=== PATIENT | female | born 1940 | race Caucasian/White ===

== ENCOUNTER 2024-06-27 17:49 | Inpatient (IN) ==
--- NOTE | 2024-06-27 18:10 | ED.PDOC ---
General <ALICJA LEE MD - Last Filed: 06/29/24 08:26> ED Provider: Dr. ALICJA LEE MD Chief Complaint: Shortness of Air Stated Complaint: Patient is a 83-year-old female that reported to the emergency department for shortness of breath. Patient stated that this started last night around midnight. Patient stated that she is just not felt well ever since her shortness of breath started. Patient did states that she takes Advair for COPD. Patient stated that she used her Advair inhaler today. Patient stated that she also takes blood pressure medication and furosemide for her congestive heart failure. Patient stated that she did not take those medications today because she did not feel well. Patient states that nothing makes her symptoms worse and nothing makes them better. Patient denies any chest pain, nausea, vomiting, diarrhea, dizziness, syncope, loss consciousness, headache, fever, or any other acute symptoms not currently mentioned in HPI. Patient denied being around any other sick contacts. Time Seen by Provider: 06/27/24 17:52 Mode of Arrival: Ambulance Information Source: Patient, Family and EMT Exam Limitations: No limitations Primary Care Provider: MANN DRAPER Nursing and Triage Documentation Reviewed and Agree: Yes Does Patient Take Opioids?: No Is Patient Opioid Naive?: No What is Opioid Naive?: *Opioid Naive implies the patient is not already taking opioids or not chronically receiving opioids on a daily basis. *PRN dosing is not "usually" associated with tolerance. *Patients are at higher risk of over-sedation and aspiration. Is Patient Opioid Tolerant?: No What is Opioid Tolerant?: *Opioid Tolerance implies less than the expected response to an opioid. *Acquired tolerance is defined by the patient taking 60mg of oral morphine daily (or equianalgesic dose of another opioid) for 1 week or more. *Often associated with chronic pain. *May take more than usual dose to achieve desired pain control. Review of Systems <ALICJA LEE MD - Last Filed: 06/29/24 08:26> Review Of Systems Constitutional: Reports Other (documented below) Respiratory: Reports Shortness of Breath All Other Systems: Other (documented below) PFSH <ALICJA LEE MD - Last Filed: 06/29/24 08:26> Medical History Thrombocytopenia D69.6 - Thrombocytopenia, unspecified (ICD-10) Anxiety F41.9 - Anxiety disorder, unspecified (ICD-10) Depression F32.A - Depression, unspecified (ICD-10) CHF (congestive heart failure) I50.9 - Heart failure, unspecified (ICD-10) Lung cancer Left lobectomy C34.90 - Malignant neoplasm of unspecified part of unspecified bronchus or lung (ICD-10) Dementia F03.90 - Unspecified dementia, unspecified severity, without behavioral disturbance, psychotic disturbance, mood disturbance, and anxiety (ICD-10) Family History Other No known health problems Social History Smoking and tobacco status: Never smoker Alcohol intake: never Surgical History History of total knee replacement (TKR) Z96.659 - Presence of unspecified artificial knee joint (ICD-10) H/O: section Z98.891 - History of uterine scar from previous surgery (ICD-10) Female Reproductive History Menstrual Hx Hysterectomy: Yes Physical Exam <ALICJA LEE MD - Last Filed: 06/29/24 08:26> Physical Exam Appearance: Reports Well-appearing and Well-nourished Ill-appearing: None (documented below if examined) Pain Distress: None (documented below if examined) Eyes: Reports YAHIR, EOMI and Conjunctiva clear ENT: Reports Ears normal, Nose normal and Oropharynx normal Neck: Supple Respiratory: Reports Airway patent, Breath sounds clear, Breath sounds equal and Respirations nonlabored Cardiovascular: Reports RRR, Pulses normal, No rub, No murmur, Irregular rhythm and Other (documented below if examined) GI/: Reports Soft, Nontender, No masses and Bowel sounds normal Musculoskeletal: Reports Normal strength, ROM intact and Edema (Patient has bilateral lower extremity +2 pitting edema.) Skin: Reports Warm, Dry, Normal color and Other (documented below if examined) Neurological: Reports Sensation intact, Motor intact and Other (documented below if examined) Psychiatric: Reports Affect appropriate, Mood appropriate and Other (documented below if examined) Interpretation <ALICJA LEE MD - Last Filed: 06/29/24 08:26> EKG Interpretation EKG Interpretation By: ED Physician Time of EKG #1: 18:25 Rate: Normal Rhythm: Sinus Ectopy: None [place]: [place] ST Segment: Normal Course <ALICJA LEE MD - Last Filed: 06/29/24 08:26> Course 06/29/24 05:06 06/29/24 05:06 Orders, Labs, Meds: Lab Review 06/27/24 06/27/24 06/27/24 18:19 18:22 19:10 WBC 6.35 RBC 3.38 L Hgb 10.7 L Hct 34.3 L MCV 101.5 H MCH 31.7 H MCHC 31.2 L RDW Coeff of Jono 15.3 H Plt Count 106 L Immature Gran % (Auto) 0.5 Neut % (Auto) 68.5 Lymph % (Auto) 19.7 [place] % (Auto) 6.3 Eos % (Auto) 4.7 Baso % (Auto) 0.3 Neut # (Auto) 4.4 Lymph # (Auto) 1.3 [place] # (Auto) 0.4 Eos # (Auto) 0.3 Baso # (Auto) 0.0 Immature Gran # (Auto) 0.0 Sodium 141.2 Potassium 4.79 Chloride 115.3 H Carbon Dioxide 18.0 L Anion Gap 12.69 BUN 41.3 H Creatinine 2.69 H Estimated GFR (MDRD) 17.00 BUN/Creatinine Ratio 15.35 Glucose 82.8 Lactic Acid 0.74 Calcium 9.47 Total Bilirubin 0.52 AST 27.5 ALT 16.1 Alkaline Phosphatase 118.2 Troponin I < 0.012 NT-Pro-B Natriuret Pep 1810 H Total Protein 6.63 Albumin 4.09 Globulin 2.54 Albumin/Globulin Ratio 1.61 Urine Color Yellow Urine Clarity Clear Urine pH 6.0 Ur Specific [place] 1.020 Urine Protein 2+ H Urine Glucose (UA) Negative Urine Ketones Negative Urine Blood Trace-intact H Urine Nitrite Negative Urine Bilirubin Negative Urine Urobilinogen 0.2 Ur Leukocyte Esterase Negative Urine Microscopic RBC 0-2 Urine Microscopic WBC 0-2 Ur Squamous Epith Cells 0-2 Urine Bacteria Trace Urine Mucus Trace Influ A Molecular Assay Negative by naat Influ B Molecular Assay Negative by naat SARS CoV-2 RNA Rapid LILIA Positive H Orders Category Date Time Status ADMIT OBSERVATION [PLACE PATIENT OBSERVATION] .TO ADMISSION 06/27/24 19:51 Active MEDSURG (MONITORED BED) EKG-(ED ONLY) Stat CARDIO 06/27/24 18:01 Completed NEBULIZER TREATMENT Routine CARDIO 06/27/24 19:59 Active NEBULIZER TREATMENT Stat CARDIO 06/27/24 18:02 Completed ACTIVITY .Early Mobilization for VTE Prevention CARE 06/27/24 19:51 Active INTAKE & OUTPUT Q8HR CARE 06/27/24 19:51 Active TELEMETRY MONITORING TELE CARE 06/27/24 19:51 Completed VITAL SIGNS Q4HR CARE 06/27/24 19:51 Active WEIGH PATIENT 0600 CARE 06/28/24 06:00 Active REGULAR DIET DIETARY 06/28/24 Breakfast Ordered ED APPLY O2 .ONCE EMERGENCY 06/27/24 18:01 Active ED SALES MGR APPLIED .ONCE EMERGENCY 06/27/24 18:01 Active CBC W/ AUTO DIFF DAILY@0600 LAB 06/28/24 05:13 Completed CBC W/ AUTO DIFF DAILY@0600 LAB 06/29/24 05:06 Completed CBC W/ AUTO DIFF Stat LAB 06/27/24 18:19 Completed COMPREHENSIVE METABOLIC PANEL DAILY@0600 LAB 06/28/24 05:13 Completed COMPREHENSIVE METABOLIC PANEL DAILY@0600 LAB 06/29/24 05:06 Completed COMPREHENSIVE METABOLIC PANEL Stat LAB 06/27/24 18:19 Completed FLU A/B MOLECULAR Stat LAB 06/27/24 18:22 Completed LACTIC ACID Stat LAB 06/27/24 18:19 Completed NT-PROBNP(ED) Stat LAB 06/27/24 18:19 Completed SARS COV-2 RNA RAPID LILIA Stat LAB 06/27/24 18:22 Completed TROPONIN I Stat LAB 06/27/24 18:19 Completed URINALYSIS C & S IF INDICATED Stat LAB 06/27/24 19:10 Completed Acetaminophen [Tylenol] Meds 06/27/24 19:51 Active 650 mg PO Q4H PRN Albuterol Sulfate 0.083% Neb [Albuterol 0.083% Neb] Meds 06/27/24 19:59 Active 2.5 mg NEB RTQ4H PRN Enoxaparin Sodium [Lovenox] Meds 06/27/24 21:00 Discontinued 30 mg SUBCUT Q24H Furosemide [Lasix] Meds 06/28/24 06:00 Discontinued 40 mg IVP BIDAC2 Furosemide [Lasix] Meds 06/27/24 18:01 Discontinued 40 mg IVP ONCE STA Ipratropium/Albuterol Neb [Duoneb] Meds 06/27/24 18:01 Discontinued 3 ml NEB ONCE STA Ipratropium/Albuterol Neb [Duoneb] Meds 06/27/24 22:00 Discontinued 3 ml NEB RTQ4H Methylprednisolone Sod Succ/Pf [Solu-Medrol 125 mg] Meds 06/27/24 18:01 Discontinued 125 mg IVP ONCE ONE CHEST, 1V AP ONLY Stat RADS 06/27/24 18:01 Completed Medications Generic Name Dose Route Start Last Admin Trade Name Freq PRN Reason Stop Dose Admin Acetaminophen 650 mg 06/27/24 19:51 Acetaminophen 325 Mg Tablet PO Q4H PRN Mild Pain Albuterol Sulfate 2.5 mg 06/27/24 19:59 Albuterol Sulfate 0.083% Vial.Neb NEB RTQ4H PRN Wheezing Albuterol/Ipratropium 3 ml 06/28/24 14:11 Ipratropium/Albuterol Vial.Neb NEB RTQ4H PRN wheezing Allopurinol 100 mg 06/28/24 09:00 06/28/24 11:37 Allopurinol 100 Mg Tablet PO 100 mg EVERY OTHER DAY TJ Administration Budesonide/Formoterol Fumarate 2 puff 06/28/24 09:00 06/28/24 20:36 Budesonide/Formoterol Fumarate 80/4.5 Mcg Hfa.Aer.Ad IH 2 puff BID TJ Administration Escitalopram Oxalate 20 mg 06/28/24 09:00 06/28/24 09:33 Escitalopram Oxalate 10 Mg Tablet PO 20 mg DAILY TJ Administration Remdesivir 100 mg/ Sodium 100 mls @ 200 mls/hr 06/29/24 09:00 Chloride IV 07/02/24 09:29 DAILY TJ Sodium Bicarbonate 650 mg 06/28/24 09:00 06/28/24 20:36 Sodium Bicarbonate 650 Mg Tablet PO 650 mg BID TJ Administration Sodium Chloride 1 syr 06/28/24 05:00 06/29/24 05:56 0.9% Sodium Chloride 10 Ml Disp.Syrin IVF 1 syr Q8HR TJ Administration Discontinued Medications Generic Name Dose Route Start Last Admin Trade Name Freq PRN Reason Stop Dose Admin Albuterol/Ipratropium 3 ml 06/27/24 18:01 06/27/24 18:18 Ipratropium/Albuterol Vial.Neb NEB 06/27/24 18:02 3 ml ONCE STA Administration Albuterol/Ipratropium 3 ml 06/27/24 22:00 06/28/24 14:04 Ipratropium/Albuterol Vial.Neb NEB Not Given RTQ4H TJ Enoxaparin Sodium 30 mg 06/27/24 21:00 06/27/24 22:13 Enoxaparin Sodium 30 Mg/0.3 Ml Syr SUBCUT Not Given Q24H TJ Furosemide 40 mg 06/27/24 18:01 06/27/24 18:26 Furosemide Inj 40 Mg/4 Ml Vial IVP 06/27/24 18:02 40 mg ONCE STA Administration Furosemide 40 mg 06/28/24 06:00 06/28/24 05:25 Furosemide Inj 40 Mg/4 Ml Vial IVP 40 mg BIDAC2 TJ Administration Remdesivir 200 mg/ Sodium 250 mls @ 250 mls/hr 06/28/24 11:03 06/28/24 11:37 Chloride IV 06/28/24 12:02 250 mls/hr ONCE ONE Administration Methylprednisolone Sodium Succinate 125 mg 06/27/24 18:01 06/27/24 18:26 Methylprednisolone Sod Succ/Pf 125 Mg/2 Ml Vial IVP 06/27/24 18:02 125 mg ONCE ONE Administration Vital Signs: Temp Pulse Resp BP Pulse Ox 06/27/24 17:50 98.1 F 68 18 188/86 H 100 <NELLIE WRIGHT MD - Last Filed: 06/27/24 22:24> Course Orders, Labs, Meds: Lab Review 06/27/24 06/27/24 06/27/24 18:19 18:22 19:10 WBC 6.35 RBC 3.38 L Hgb 10.7 L Hct 34.3 L MCV 101.5 H MCH 31.7 H MCHC 31.2 L RDW Coeff of Jono 15.3 H Plt Count 106 L Immature Gran % (Auto) 0.5 Neut % (Auto) 68.5 Lymph % (Auto) 19.7 [place] % (Auto) 6.3 Eos % (Auto) 4.7 Baso % (Auto) 0.3 Neut # (Auto) 4.4 Lymph # (Auto) 1.3 [place] # (Auto) 0.4 Eos # (Auto) 0.3 Baso # (Auto) 0.0 Immature Gran # (Auto) 0.0 Sodium 141.2 Potassium 4.79 Chloride 115.3 H Carbon Dioxide 18.0 L Anion Gap 12.69 BUN 41.3 H Creatinine 2.69 H Estimated GFR (MDRD) 17.00 BUN/Creatinine Ratio 15.35 Glucose 82.8 Lactic Acid 0.74 Calcium 9.47 Total Bilirubin 0.52 AST 27.5 ALT 16.1 Alkaline Phosphatase 118.2 Troponin I < 0.012 NT-Pro-B Natriuret Pep 1810 H Total Protein 6.63 Albumin 4.09 Globulin 2.54 Albumin/Globulin Ratio 1.61 Urine Color Yellow Urine Clarity Clear Urine pH 6.0 Ur Specific [place] 1.020 Urine Protein 2+ H Urine Glucose (UA) Negative Urine Ketones Negative Urine Blood Trace-intact H Urine Nitrite Negative Urine Bilirubin Negative Urine Urobilinogen 0.2 Ur Leukocyte Esterase Negative Urine Microscopic RBC 0-2 Urine Microscopic WBC 0-2 Ur Squamous Epith Cells 0-2 Urine Bacteria Trace Urine Mucus Trace Influ A Molecular Assay Negative by naat Influ B Molecular Assay Negative by naat SARS CoV-2 RNA Rapid LILIA Positive H Orders Category Date Time Status ADMIT OBSERVATION [PLACE PATIENT OBSERVATION] .TO ADMISSION 06/27/24 19:51 Active MEDSURG (MONITORED BED) EKG-(ED ONLY) Stat CARDIO 06/27/24 18:01 Completed NEBULIZER TREATMENT Routine CARDIO 06/27/24 19:59 Active NEBULIZER TREATMENT Stat CARDIO 06/27/24 18:02 Completed ACTIVITY .Early Mobilization for VTE Prevention CARE 06/27/24 19:51 Active INTAKE & OUTPUT Q8HR CARE 06/27/24 19:51 Active TELEMETRY MONITORING TELE CARE 06/27/24 19:51 Completed VITAL SIGNS Q4HR CARE 06/27/24 19:51 Active WEIGH PATIENT 0600 CARE 06/28/24 06:00 Active REGULAR DIET DIETARY 06/28/24 Breakfast Ordered ED APPLY O2 .ONCE EMERGENCY 06/27/24 18:01 Active ED SALES MGR APPLIED .ONCE EMERGENCY 06/27/24 18:01 Active CBC W/ AUTO DIFF DAILY@0600 LAB 06/28/24 05:13 Completed CBC W/ AUTO DIFF DAILY@0600 LAB 06/29/24 05:06 Completed CBC W/ AUTO DIFF Stat LAB 06/27/24 18:19 Completed COMPREHENSIVE METABOLIC PANEL DAILY@0600 LAB 06/28/24 05:13 Completed COMPREHENSIVE METABOLIC PANEL DAILY@0600 LAB 06/29/24 05:06 Completed COMPREHENSIVE METABOLIC PANEL Stat LAB 06/27/24 18:19 Completed FLU A/B MOLECULAR Stat LAB 06/27/24 18:22 Completed LACTIC ACID Stat LAB 06/27/24 18:19 Completed NT-PROBNP(ED) Stat LAB 06/27/24 18:19 Completed SARS COV-2 RNA RAPID LILIA Stat LAB 06/27/24 18:22 Completed TROPONIN I Stat LAB 06/27/24 18:19 Completed URINALYSIS C & S IF INDICATED Stat LAB 06/27/24 19:10 Completed Acetaminophen [Tylenol] Meds 06/27/24 19:51 Active 650 mg PO Q4H PRN Albuterol Sulfate 0.083% Neb [Albuterol 0.083% Neb] Meds 06/27/24 19:59 Active 2.5 mg NEB RTQ4H PRN Enoxaparin Sodium [Lovenox] Meds 06/27/24 21:00 Discontinued 30 mg SUBCUT Q24H Furosemide [Lasix] Meds 06/28/24 06:00 Discontinued 40 mg IVP BIDAC2 Furosemide [Lasix] Meds 06/27/24 18:01 Discontinued 40 mg IVP ONCE STA Ipratropium/Albuterol Neb [Duoneb] Meds 06/27/24 18:01 Discontinued 3 ml NEB ONCE STA Ipratropium/Albuterol Neb [Duoneb] Meds 06/27/24 22:00 Discontinued 3 ml NEB RTQ4H Methylprednisolone Sod Succ/Pf [Solu-Medrol 125 mg] Meds 06/27/24 18:01 Discontinued 125 mg IVP ONCE ONE CHEST, 1V AP ONLY Stat RADS 06/27/24 18:01 Completed Medications Generic Name Dose Route Start Last Admin Trade Name Freq PRN Reason Stop Dose Admin Acetaminophen 650 mg 06/27/24 19:51 Acetaminophen 325 Mg Tablet PO Q4H PRN Mild Pain Albuterol Sulfate 2.5 mg 06/27/24 19:59 Albuterol Sulfate 0.083% Vial.Neb NEB RTQ4H PRN Wheezing Albuterol/Ipratropium 3 ml 06/28/24 14:11 Ipratropium/Albuterol Vial.Neb NEB RTQ4H PRN wheezing Allopurinol 100 mg 06/28/24 09:00 06/28/24 11:37 Allopurinol 100 Mg Tablet PO 100 mg EVERY OTHER DAY TJ Administration Budesonide/Formoterol Fumarate 2 puff 06/28/24 09:00 06/28/24 20:36 Budesonide/Formoterol Fumarate 80/4.5 Mcg Hfa.Aer.Ad IH 2 puff BID TJ Administration Escitalopram Oxalate 20 mg 06/28/24 09:00 06/28/24 09:33 Escitalopram Oxalate 10 Mg Tablet PO 20 mg DAILY TJ Administration Remdesivir 100 mg/ Sodium 100 mls @ 200 mls/hr 06/29/24 09:00 Chloride IV 07/02/24 09:29 DAILY TJ Sodium Bicarbonate 650 mg 06/28/24 09:00 06/28/24 20:36 Sodium Bicarbonate 650 Mg Tablet PO 650 mg BID TJ Administration Sodium Chloride 1 syr 06/28/24 05:00 06/29/24 05:56 0.9% Sodium Chloride 10 Ml Disp.Syrin IVF 1 syr Q8HR TJ Administration Discontinued Medications Generic Name Dose Route Start Last Admin Trade Name Freq PRN Reason Stop Dose Admin Albuterol/Ipratropium 3 ml 06/27/24 18:01 06/27/24 18:18 Ipratropium/Albuterol Vial.Neb NEB 06/27/24 18:02 3 ml ONCE STA Administration Albuterol/Ipratropium 3 ml 06/27/24 22:00 06/28/24 14:04 Ipratropium/Albuterol Vial.Neb NEB Not Given RTQ4H TJ Enoxaparin Sodium 30 mg 06/27/24 21:00 06/27/24 22:13 Enoxaparin Sodium 30 Mg/0.3 Ml Syr SUBCUT Not Given Q24H TJ Furosemide 40 mg 06/27/24 18:01 06/27/24 18:26 Furosemide Inj 40 Mg/4 Ml Vial IVP 06/27/24 18:02 40 mg ONCE STA Administration Furosemide 40 mg 06/28/24 06:00 06/28/24 05:25 Furosemide Inj 40 Mg/4 Ml Vial IVP 40 mg BIDAC2 TJ Administration Remdesivir 200 mg/ Sodium 250 mls @ 250 mls/hr 06/28/24 11:03 06/28/24 11:37 Chloride IV 06/28/24 12:02 250 mls/hr ONCE ONE Administration Methylprednisolone Sodium Succinate 125 mg 06/27/24 18:01 06/27/24 18:26 Methylprednisolone Sod Succ/Pf 125 Mg/2 Ml Vial IVP 06/27/24 18:02 125 mg ONCE ONE Administration [address] [address] Diagnostic Imaging Diagnostic Imaging Report : [id number] Signed Patient: ERLIN WILLARD Acct:[id number] Medical Record: [id number] : 1940 Loc: ED Room/Bed: Age/Sex: 83 / F ADM Status: REG ER Date of Service: 06/27/24 Ordering Physician: ALICJA LEE MD Procedure(s): CHEST, 1V AP ONLY Report Number(s): [id number] Accession Number(s): [id number] cc: ALICJA LEE MD; MANN DRAPER , DNP, PARENT COACH EXAM: SINGLE VIEW CHEST XRAY. Date: 06/27/2024 Comparison: 11/28/2023 History: Shortness of breath with history of left lung cancer and partial left lobectomy. Findings: No acute osseous abnormality. There is stable scarring along the left lateral chest wall. The lungs are hyperinflated. The cardiac silhouette is enlarged. The pulmonary vasculatures normal. Impression: No acute findings and no significant change from 08/28/2024. Emphysematous changes with stable scarring along the left lateral chest wall. Cardiomegaly. Dictated By: ANGIE MINOR Signed By: ANGIE MINOR Dictated Date/Time: 06/27/241853 Transcribed Date/Time: 06/27/241853 Signed Date/Time: 06/27/24 1900 Vital Signs: Temp Pulse Resp BP Pulse Ox 06/27/24 17:50 98.1 F 68 18 188/86 H 100 19:00 - Assumed transfer of care from Dr. Lee after receiving report. Assessed pt at bedside after receiving Duoneb, Solumedrol 125, Lasix 40. Pt is hemodynamically stable but diminished breath sounds L>R lung baker. Updated pt with lab results with increased Cr, BNP. Pt agreeable to obs admission with strict I&Os for SPEEDY, COPD/CHF exac in the setting of early C19+ infection. 19:30 - Spoke with on-call hospitalist (Kenny James NP) regarding pt status and current workup and management. Agreed to accept pt for obs admission and likely dc home with appropriate oral antiviral therapy. Discharge Plan Discharge Patient Disposition: PLACED OBSERVATION Discharge Problem: COVID, SPEEDY (acute kidney injury) Dyspnea Qualifiers: Dyspnea type: unspecified Qualified Code(s): R06.00 - Dyspnea, unspecified Did you review [place] [employer] for ALL controlled substances?: Not Applicable ED Provider: NELLIE WRIGHT Condition: Stable <ALICJA LEE MD - Last Filed: 06/29/24 08:26> Physician Progress Note: Patient is a 83-year-old female that reported to the emergency department for shortness of breath. Patient stated that this started last night around midnight. Patient stated that she is just not felt well ever since her shortness of breath started. Patient did states that she takes Advair for COPD. Patient stated that she used her Advair inhaler today. Patient stated that she also takes blood pressure medication and furosemide for her congestive heart failure. Patient stated that she did not take those medications today because she did not feel well. Patient states that nothing makes her symptoms worse and nothing makes them better. Patient denies any chest pain, nausea, vomiting, diarrhea, dizziness, syncope, loss consciousness, headache, fever, or any other acute symptoms not currently mentioned in HPI. Patient denied being around any other sick contacts. -Will order baseline labs, EKG, troponin, IV Lasix 40 mg, IV methylprednisolone 125 mg, and a DuoNeb treatment. -EKG shows normal sinus rhythm with a rate of 65 bpm. No acute diagnostic ST elevations noted. -CBC shows an anemia more than likely of chronic disease. Lactic acid normal. Patient is positive for COVID. Patient's vital signs are stable with slightly elevated blood pressure of 177/92 at bedside. -1900: Endorsed patient care and current clinical presentation and all labs to the oncoming ER doctor Dr. Wright. Pt stable at checkout. -Dr. Wright eventually admitted the patient for observation at [facility].
[2024-06-27] MEDS: DUONEB NEB STA (18:18)
[2024-06-27 18:21] LABS: BASOPHILS % (AUTO) 0.3 % (0.0-3.0); EOSINOPHILS # (AUTO) 0.3 K/ul (0.0-0.7); EOSINOPHILS % (AUTO) 4.7 % (0.0-7.0); HEMATOCRIT 34.3 % (37.0-47.0); HEMOGLOBIN 10.7 g/dl (12.0-16.0); IMMATURE GRANULOCYTE % (AUTO) 0.5 % (0.0-5.0); LYMPHOCYTES # (AUTO) 1.3 K/uL (0.60-3.4); LYMPHOCYTES % (AUTO) 19.7 (10.0-50.0); MEAN CORPUSCULAR HEMOGLOBIN 31.7 pg (27.0-31.0); MEAN CORPUSCULAR HGB CONC 31.2 (31.8-35.4); MEAN CORPUSCULAR VOLUME 101.5 fl (81.0-99.0); MONOCYTES # (AUTO) 0.4 K/uL (0.4-2.0); MONOCYTES % (AUTO) 6.3 (0-10); NEUTROPHILS # (AUTO) 4.4 K/ul (2.0-6.9); NEUTROPHILS % (AUTO) 68.5 % (42.2-75.2); PLATELET COUNT 106 10^3/uL (140-440); RDW COEFFICIENT OF VARIATION 15.3 % (11.6-14.8); RED BLOOD COUNT 3.38 10^6/ul (4.20-5.40); WHITE BLOOD COUNT 6.35 K/ul (4.6-10.2)
[2024-06-27] MEDS: LASIX IVP STA (18:26)
[2024-06-27] MEDS: SOLU-MEDROL 125 MG IVP ONE (18:26)
[2024-06-27 18:33] LABS: ALANINE AMINOTRANSFERASE 16.1 U/L (0-35); ALBUMIN 4.09 g/dL (3.5-5.0); ALKALINE PHOSPHATASE 118.2 U/L (53-141); ASPARTATE AMINO TRANSFERASE 27.5 U/L (14-36); BILIRUBIN,TOTAL 0.52 mg/dL (0.2-1.3); BLOOD UREA NITROGEN 41.3 mg/dL (7-17); CALCIUM 9.47 mg/dL (8.4-10.2); CHLORIDE 115.3 mmol/L (98-107); CREATININE 2.69 mg/dL (0.60-1.30); GLUCOSE 82.8 mg/dL (74-106); POTASSIUM 4.79 mmol/L (3.5-5.1); SODIUM 141.2 mmol/L (134.5-145); TOTAL PROTEIN 6.63 g/dL (6.3-8.2)
[2024-06-27 18:43] LABS: MOLECULAR FLU A NEGATIVE BY NAAT (NEGATIVE); MOLECULAR FLU B NEGATIVE BY NAAT (NEGATIVE)
[2024-06-27 18:44] LABS: SARS COV-2 RNA RAPID NAAT POSITIVE (NEGATIVE)
[2024-06-27 18:49] LABS: TROPONIN I < 0.012 ng/ml (0.0000-0.120)
--- NOTE | 2024-06-27 19:00 | DI ---
EXAM: SINGLE VIEW CHEST XRAY. Date: 06/27/2024 Comparison: 11/28/2023 History: Shortness of breath with history of left lung cancer and partial left lobectomy. Findings: No acute osseous abnormality. There is stable scarring along the left lateral chest wall. The lungs are hyperinflated. The cardiac silhouette is enlarged. The pulmonary vasculatures normal . Impression: No acute findings and no significant change from 08/28/2024. Emphysematous changes with stable scarring along the left lateral chest wall. Cardiomegaly.
[2024-06-27] MEDS ORDERED: TYLENOL PO PRN (19:51)
[2024-06-27] MEDS ORDERED: ALBUTEROL 0.083% NEB NEB PRN (19:59)
[2024-06-27 21:22] LABS: BILIRUBIN,URINE Negative (NEGATIVE); CLARITY,URINE Clear (CLEAR); COLOR,URINE Yellow (YELLOW); GLUCOSE, URINE (UA) Negative (NEGATIVE); KETONES,URINE Negative (NEGATIVE); LEUKOCYTE ESTERASE ,URINE Negative (NEGATIVE); NITRITE,URINE Negative (NEGATIVE); PROTEIN,URINE 2+ (NEGATIVE); URINE, BLOOD Trace-intact (NEGATIVE); UROBILINOGEN,URINE 0.2 (0.2)
[2024-06-27 21:29] LABS: BACTERIA,URINE TRACE (NOT PRESENT); MUCUS,URINE TRACE (NOT PRESENT); SQUAMOUS EPITHELIAL CELL,UR 0-2 (0-5); URINE RBC, MICROSCOPIC 0-2 (0-2); URINE WBC, MICROSCOPIC 0-2 (0-2)
[2024-06-27] MEDS: DUONEB NEB SCH (21:40)
[2024-06-27] MEDS: LOVENOX SUBCUT SCH (22:13)
[2024-06-27 22:31] VITALS: BMI 30.6
[2024-06-28 05:18] LABS: HEMOGLOBIN 11.2 g/dl (12.0-16.0); MEAN CORPUSCULAR HEMOGLOBIN 31.8 pg (27.0-31.0); MEAN CORPUSCULAR HGB CONC 31.1 (31.8-35.4); MEAN CORPUSCULAR VOLUME 102.3 fl (81.0-99.0); PLATELET COUNT 101 10^3/uL (140-440); RED BLOOD COUNT 3.52 10^6/ul (4.20-5.40); WHITE BLOOD COUNT 5.67 K/ul (4.6-10.2)
[2024-06-28] MEDS: LASIX IVP SCH (05:25)
[2024-06-28 05:33] LABS: ALANINE AMINOTRANSFERASE 17.8 U/L (0-35); ALBUMIN 4.09 g/dL (3.5-5.0); ALKALINE PHOSPHATASE 115.7 U/L (53-141); ASPARTATE AMINO TRANSFERASE 20.7 U/L (14-36); BILIRUBIN,TOTAL 0.69 mg/dL (0.2-1.3); BLOOD UREA NITROGEN 44.5 mg/dL (7-17); CALCIUM 9.9 mg/dL (8.4-10.2); CARBON DIOXIDE 14.8 mmol/L (22-30.0); CHLORIDE 114.7 mmol/L (98-107); CREATININE 2.59 mg/dL (0.60-1.30); GLUCOSE 142.8 mg/dL (74-106); POTASSIUM 5.07 mmol/L (3.5-5.1); SODIUM 140.6 mmol/L (134.5-145); TOTAL PROTEIN 6.63 g/dL (6.3-8.2)
[2024-06-28 05:47] LABS: ANISOCYTOSIS NOT PRESENT (NOT PRESENT)
[2024-06-28] MEDS ORDERED: DECADRON IVP SCH (09:00)
[2024-06-28] MEDS: SODIUM BICARBONATE PO SCH (09:33)
[2024-06-28] MEDS: LEXAPRO PO SCH (09:33)
[2024-06-28] MEDS: SYMBICORT 80-4.5 MCG INHALER IH SCH (09:34)
[2024-06-28 10:42] LABS: PROTHROMBIN TIME 9.9 SEC (9.3-11.0)
--- NOTE | 2024-06-28 11:12 | PCM ---
Date of Service Date Seen by Provider: 06/28/24 Time Seen by Provider: 08:50 Admit Day/Time Admission Date: 06/27/24 Admission Time: 19:51 Reason for Admission Chief Complaint: SPEEDY, COVID + Hospital Provider Hospital Provider: JESSEE CASPER PA-C, [facility] Primary Care Physician Primary Care Physician: MANN DRAPER History of Present Illness History of Present Illness: Patient is an 83 year old female with pmhx of right kidney cancer s/p nephrectomy, left lower lobe lung lobectomy (potentially due to cancerous area), COPD, depression, gout, CHF, hypertension, CKD who presents to ER with worsening shortness of breath over last day or two. She states she has a cough but often has a cough. She feels weak overall. CXR negative. Covid was positive. Pt felt to be fluid overloaded and given lasix. BNP elevated at 1800. Cr elevated as well, unsure of baseline. Patient admitted to med surg. Records obtained from [facility] showing on CR was 2.3, BUN 47, bicarb 22, BNP 1137. Echo within past year was overall normal with some mild aortic stenosis. EF normal. When discussing lovenox prophylaxis patient states she doesn't think she can have it because of a brain aneurysm but she's unsure of details. Unable to find record of this. Case Discussed With Case Discussed With: Patient's case was discussed with the ER Physicians, Dr. Nath. [facility] Medical History Thrombocytopenia D69.6 - Thrombocytopenia, unspecified (ICD-10) Anxiety F41.9 - Anxiety disorder, unspecified (ICD-10) Depression F32.A - Depression, unspecified (ICD-10) CHF (congestive heart failure) I50.9 - Heart failure, unspecified (ICD-10) Lung cancer Left lobectomy C34.90 - Malignant neoplasm of unspecified part of unspecified bronchus or lung (ICD-10) Dementia F03.90 - Unspecified dementia, unspecified severity, without behavioral disturbance, psychotic disturbance, mood disturbance, and anxiety (ICD-10) Surgical History History of total knee replacement (TKR) Z96.659 - Presence of unspecified artificial knee joint (ICD-10) H/O: section Z98.891 - History of uterine scar from previous surgery (ICD-10) Family History Other No known health problems Social History Smoking and tobacco status: Never smoker Alcohol intake: never Allergies Allergies Allergy/AdvReac Type Severity Reaction Status Date / Time gabapentin AdvReac Verified 06/27/24 20:13 metoprolol AdvReac Verified 06/27/24 20:13 NSAIDS (Non-Steroidal AdvReac Verified 06/27/24 20:13 Anti-Inflamma Penicillins AdvReac Verified 06/27/24 20:13 pollen extracts AdvReac Verified 06/27/24 20:13 tetrabenazine AdvReac Verified 06/27/24 20:13 "I can't remember all of AdvReac Uncoded 01/16/24 09:39 them." Current Medications Home Medications allopurinol 100 mg tablet 100 mg PO EVERY OTHER DAY 11/28/23 [History Confirmed 06/27/24 Last Taken Unknown] cholecalciferol (vitamin D3) 25 mcg (1,000 unit) capsule (Vitamin D3) 25 mcg PO DAILY 11/28/23 [History Confirmed 06/27/24 Last Taken Unknown] fluticasone 100 mcg-salmeterol 50 mcg/dose blistr powdr for inhalation (Advair Diskus) 1 inh inhalation BID 11/28/23 [History Confirmed 06/27/24 Last Taken Unknown] losartan 100 mg tablet (Cozaar) 100 mg PO DAILY 11/28/23 [History Confirmed 06/27/24 Last Taken Unknown] mecobalamin (vitamin B12) 1,000 mcg disintegrating tablet,sublingual 1,000 mcg sublingual DAILY 11/28/23 [History Confirmed 06/27/24 Last Taken Unknown] albuterol sulfate 90 mcg/actuation aerosol inhaler (Proventil HFA) 1 inh inhalation Q4-6H PRN shortness of breath or wheezing 06/27/24 [History Confirmed 06/27/24 Last Taken Unknown] escitalopram oxalate 20 mg tablet 20 mg PO DAILY 06/27/24 [History Confirmed 06/27/24 Last Taken Unknown] furosemide 40 mg tablet 40 mg PO DAILY 06/27/24 [History Confirmed 06/27/24 Last Taken Unknown] sodium bicarbonate 650 mg tablet 650 mg PO BID 06/27/24 [History Confirmed 06/27/24 Last Taken Unknown] Home Acetaminophen (Acetaminophen 325 Mg Tablet) 650 mg PO Q4H PRN PRN Reason: Mild Pain Albuterol Sulfate (Albuterol Sulfate 0.083% Vial.Neb) 2.5 mg NEB RTQ4H PRN PRN Reason: Wheezing Albuterol/Ipratropium (Ipratropium/Albuterol Vial.Neb) 3 ml NEB RTQ4H PRN PRN Reason: wheezing Allopurinol (Allopurinol 100 Mg Tablet) 100 mg PO EVERY OTHER DAY [facility] Last Admin: 06/28/24 11:37 Dose: 100 mg Budesonide/Formoterol Fumarate (Budesonide/Formoterol Fumarate 80/4.5 Mcg Hfa.Aer.Ad) 2 puff IH BID [facility] Last Admin: 06/28/24 09:34 Dose: 2 puff Enoxaparin Sodium (Enoxaparin Sodium 30 Mg/0.3 Ml Syr) 30 mg SUBCUT Q24H [facility] Last Admin: 06/27/24 22:13 Dose: Not Given Escitalopram Oxalate (Escitalopram Oxalate 10 Mg Tablet) 20 mg PO DAILY [facility] Last Admin: 06/28/24 09:33 Dose: 20 mg Furosemide (Furosemide Inj 40 Mg/4 Ml Vial) 40 mg IVP BIDAC2 [facility] Last Admin: 06/28/24 05:25 Dose: 40 mg Remdesivir 100 mg/ Sodium (Chloride) 100 mls @ 200 mls/hr IV DAILY [facility] Stop: 07/02/24 09:29 Sodium Bicarbonate (Sodium Bicarbonate 650 Mg Tablet) 650 mg PO BID [facility] Last Admin: 06/28/24 09:33 Dose: 650 mg Sodium Chloride (0.9% Sodium Chloride 10 Ml Disp.Syrin) 1 syr IVF Q8HR [facility] Last Admin: 06/28/24 14:12 Dose: 1 syr Discontinued Medications Albuterol/Ipratropium (Ipratropium/Albuterol Vial.Neb) 3 ml NEB ONCE STA Stop: 06/27/24 18:02 Last Admin: 06/27/24 18:18 Dose: 3 ml Albuterol/Ipratropium (Ipratropium/Albuterol Vial.Neb) 3 ml NEB RTQ4H [facility] Last Admin: 06/28/24 14:04 Dose: Not Given Furosemide (Furosemide Inj 40 Mg/4 Ml Vial) 40 mg IVP ONCE STA Stop: 06/27/24 18:02 Last Admin: 06/27/24 18:26 Dose: 40 mg Remdesivir 200 mg/ Sodium (Chloride) 250 mls @ 250 mls/hr IV ONCE ONE Stop: 06/28/24 12:02 Last Admin: 06/28/24 11:37 Dose: 250 mls/hr Methylprednisolone Sodium Succinate (Methylprednisolone Sod Succ/Pf 125 Mg/2 Ml Vial) 125 mg IVP ONCE ONE Stop: 06/27/24 18:02 Last Admin: 06/27/24 18:26 Dose: 125 mg Opioid Naive vs. Tolerant Does Patient Take Opioids?: No Is Patient Opioid Naive?: Yes What is Opioid Naive?: *Opioid Naive implies the patient is not already taking opioids or not chronically receiving opioids on a daily basis. *PRN dosing is not "usually" associated with tolerance. *Patients are at higher risk of over-sedation and aspiration. Is Patient Opioid Tolerant?: No What is Opioid Tolerant?: *Opioid Tolerance implies less than the expected response to an opioid. *Acquired tolerance is defined by the patient taking 60mg of oral morphine daily (or equianalgesic dose of another opioid) for 1 week or more. *Often associated with chronic pain. *May take more than usual dose to achieve desired pain control. Review of Systems Constitutional: Reports Fatigue and Weakness; Denies Fever Head: Reports Normocephalic and Atraumatic Throat: Denies Sore Throat Cardiovascular: Reports Edema; Denies Chest pain Respiratory: Reports Cough and Shortness of air Gastrointestinal: Denies Nausea, Vomiting, Diarrhea, Abdominal pain or Melena Genitourinary: Denies Dysuria or Frequency Neurological: Reports Weakness; Denies Headache, Dizziness or Syncope Physical examination Most Recent Vital Signs: Most Recent Vital Signs Temperature 97.6 F 06/28/24 06:00 Temperature Source Temporal Artery Scan 06/28/24 06:00 Temperature Source Temporal Artery Scan 06/27/24 17:50 Pulse Rate 60 06/28/24 06:00 Respiratory Rate 18 06/28/24 08:00 Blood Pressure 168/80 H 06/28/24 06:00 Blood Pressure Mean 109 06/28/24 06:00 Blood Pressure Left Arm 183/84 06/27/24 20:42 Blood Pressure Location Left Arm 06/28/24 06:00 Blood Pressure Position Supine 06/28/24 06:00 O2 Sat by Pulse Oximetry 97 06/28/24 06:00 Oxygen Delivery Method Room Air 06/28/24 09:00 Height 5 ft 7 in 06/27/24 20:42 Weight 190 lb 2 oz 06/28/24 06:00 Telemetry Type Bedside Monitor 06/28/24 07:00 Telemetry Monitoring Continues 06/28/24 07:00 Telemetry Heart Rate 81 06/28/24 07:00 Telemetry SPO2 97 06/28/24 07:00 EKG WI Interval 0.24 H 06/28/24 07:00 EKG QRS Interval 0.08 06/28/24 07:00 Telemetry Strip Reading SR WITH 1ST DEGREE AVB 06/28/24 07:00 Appearance: Positive No Apparent Distress and Alert and Oriented x3 Skin: Positive [place], Warm, Good Turgor and Good Color; Negative Rashes HEENT: Positive Normocephalic and Atraumatic Neck: Positive Supple and Midline Trachea Chest/Lungs: Positive Clear to Auscultation Bilaterally; Negative Rales, Rhonci or Wheezes Heart: Positive RRR GI/: Positive Soft, Nontender, Bowel Sounds Normal and No Distention Neurological: Positive Cranial Nerves Intact, Alert, Oriented and Other (+generalized weakness ) Psychiatric: Positive Oriented x4 (but does have difficulty remembering details of pmhx ), Appropriate Mood and Appropriate Affect Additional Findings: +trace edema isabella lower ext Labs This Visit Labs This Visit: Labs This Visit 06/27/24 06/27/24 06/27/24 18:19 18:22 19:10 WBC 6.35 RBC 3.38 L Hgb 10.7 L Hct 34.3 L MCV 101.5 H MCH 31.7 H MCHC 31.2 L RDW Coeff of Jono 15.3 H Plt Count 106 L Immature Gran % (Auto) 0.5 Neut % (Auto) 68.5 Lymph % (Auto) 19.7 Evangeline % (Auto) 6.3 Eos % (Auto) 4.7 Baso % (Auto) 0.3 Neut # (Auto) 4.4 Lymph # (Auto) 1.3 Evangeline # (Auto) 0.4 Eos # (Auto) 0.3 Baso # (Auto) 0.0 Immature Gran # (Auto) 0.0 Neutrophils % (Manual) Lymphocytes % (Manual) Monocytes % (Manual) Anisocytosis PT INR Sodium 141.2 Potassium 4.79 Chloride 115.3 H Carbon Dioxide 18.0 L Anion Gap 12.69 BUN 41.3 H Creatinine 2.69 H Estimated GFR (MDRD) 17.00 BUN/Creatinine Ratio 15.35 Glucose 82.8 Lactic Acid 0.74 Calcium 9.47 Total Bilirubin 0.52 AST 27.5 ALT 16.1 Alkaline Phosphatase 118.2 Troponin I < 0.012 NT-Pro-B Natriuret Pep 1810 H Total Protein 6.63 Albumin 4.09 Globulin 2.54 Albumin/Globulin Ratio 1.61 Urine Color Yellow Urine Clarity Clear Urine pH 6.0 Ur Specific [employer] 1.020 Urine Protein 2+ H Urine Glucose (UA) Negative Urine Ketones Negative Urine Blood Trace-intact H Urine Nitrite Negative Urine Bilirubin Negative Urine Urobilinogen 0.2 Ur Leukocyte Esterase Negative Urine Microscopic RBC 0-2 Urine Microscopic WBC 0-2 Ur Squamous Epith Cells 0-2 Urine Bacteria Trace Urine Mucus Trace Influ A Molecular Assay Negative by naat Influ B Molecular Assay Negative by naat SARS CoV-2 RNA Rapid LILIA Positive H 06/28/24 06/28/24 05:13 10:27 WBC 5.67 RBC 3.52 L Hgb 11.2 L Hct 36.0 L MCV 102.3 H MCH 31.8 H MCHC 31.1 L RDW Coeff of Jono 15.0 H Plt Count 101 L Immature Gran % (Auto) Neut % (Auto) Lymph % (Auto) Evangeline % (Auto) Eos % (Auto) Baso % (Auto) Neut # (Auto) Lymph # (Auto) Ev[place]eline # (Auto) Eos # (Auto) Baso # (Auto) Immature Gran # (Auto) Neutrophils % (Manual) 86.0 H Lymphocytes % (Manual) 10.0 Monocytes % (Manual) 1.0 Anisocytosis Not present PT 9.9 INR 0.95 Sodium 140.6 Potassium 5.07 Chloride 114.7 H Carbon Dioxide 14.8 L Anion Gap 16.17 BUN 44.5 H Creatinine 2.59 H Estimated GFR (MDRD) 18.00 BUN/Creatinine Ratio 17.18 Glucose 142.8 H D Lactic Acid Calcium 9.90 Total Bilirubin 0.69 AST 20.7 ALT 17.8 Alkaline Phosphatase 115.7 Troponin I NT-Pro-B Natriuret Pep Total Protein 6.63 Albumin 4.09 Globulin 2.54 Albumin/Globulin Ratio 1.61 Urine Color Urine Clarity Urine pH Ur Specific [employer] Urine Protein Urine Glucose (UA) Urine Ketones Urine Blood Urine Nitrite Urine Bilirubin Urine Urobilinogen Ur Leukocyte Esterase Urine Microscopic RBC Urine Microscopic WBC Ur Squamous Epith Cells Urine Bacteria Urine Mucus Influ A Molecular Assay Influ B Molecular Assay SARS CoV-2 RNA Rapid LILIA Imaging Imaging: EXAM: SINGLE VIEW CHEST XRAY. Date: 06/27/2024 Comparison: 11/28/2023 History: Shortness of breath with history of left lung cancer and partial left lobectomy. Findings: No acute osseous abnormality. There is stable scarring along the left lateral chest wall. The lungs are hyperinflated. The cardiac silhouette is enlarged. The pulmonary vasculatures normal. Impression: No acute findings and no significant change from 08/28/2024. Emphysematous changes with stable scarring along the left lateral chest wall. Cardiomegaly. Review Statement Review Statement: I have independently reviewed and interpreted the labs/EKGs/imaging that were ordered by the ER provider. I have reviewed all outside records that are available currently in our EMR including imaging/notes/labs from previous visits. Plan Plan: 1. Acute HFpEF exacerbation - Lasix 40 bid ordered. Output of about 1 L. Will get BMP at 1400 to monitor CKD and bicarb, will adjust as needed. On RA. Echo on 01/30/24 showed EF 56-60%, normal diastolic function. 2. Covid 19 - Will do remdesivir based on pmhx, pt agreeable. Will hold decadron as she is not hypoxic nor wheezing at this time. CXR clear. Covid precautions. 3. SPEEDY, stage I with low bicarb on CKD- Improved mildly. Baseline Cr about 2.3. Will repeat bmp this afternoon. 4. Hypertension - Hold losartan due to SPEEDY 5. Depression- Cont home meds 6. Gout - Cont allopurinol DVT Prophylaxis: Pt unsure if she can take lovenox, would prefer not to. Encouraged ambulation. Time Spent: Greater than 80 minutes spent with patient, 50% of the time spent with this patient was devoted to counseling and coordination of care. [facility] minutes spent discussing advance care planning. Admit to: Made inpatient Discussed Plan of Care with Dr. Tamir Love. Medications Medication Orders: Medications Ordered Category Date Time Status 0.9 % Sodium Chloride [Saline Flush] Meds 06/28/24 05:00 Active 1 syr IVF Q8HR Acetaminophen [Tylenol] Meds 06/27/24 19:51 Active 650 mg PO Q4H PRN Albuterol Sulfate 0.083% Neb [Albuterol 0.083% Neb] Meds 06/27/24 19:59 Active 2.5 mg NEB RTQ4H PRN Allopurinol [Zyloprim] Meds 06/28/24 09:00 Active 100 mg PO EVERY OTHER DAY Budesonide/Formoterol Fumarate [Symbicort 80-4.5 Mcg Meds 06/28/24 09:00 Active Inhaler] 2 puff IH BID Dexamethasone Sod Phosphate [Decadron] Meds 06/28/24 09:00 Hold 6 mg IVP DAILY Enoxaparin Sodium [Lovenox] Meds 06/27/24 21:00 Active 30 mg SUBCUT Q24H Escitalopram Oxalate [Lexapro] Meds 06/28/24 09:00 Active 20 mg PO DAILY Furosemide [Lasix] Meds 06/28/24 06:00 Active 40 mg IVP BIDAC2 Ipratropium/Albuterol Neb [Duoneb] Meds 06/27/24 22:00 Active 3 ml NEB RTQ4H Remdesivir [Veklury] 100 mg Meds 06/29/24 09:00 Ordered 0.9 % Sodium Chloride [Sodium Chloride 100Ml] 100 ml IV DAILY Remdesivir [Veklury] 200 mg Meds 06/28/24 11:03 Ordered 0.9 % Sodium Chloride [Sodium Chloride] 250 ml IV ONCE Sodium Bicarbonate Meds 06/28/24 09:00 Active 650 mg PO BID
[2024-06-28] MEDS: VEKLURY 200 MG in SODIUM CHLORIDE 250 ML IV ONE (11:37)
[2024-06-28] MEDS: ZYLOPRIM PO SCH (11:37)
[2024-06-28] MEDS ORDERED: DUONEB NEB PRN (14:11)
[2024-06-28 14:26] LABS: BLOOD UREA NITROGEN 51.5 mg/dL (7-17); CALCIUM 9.54 mg/dL (8.4-10.2); CARBON DIOXIDE 19.2 mmol/L (22-30.0); CHLORIDE 107.3 mmol/L (98-107); CREATININE 2.7 mg/dL (0.60-1.30); GLUCOSE 122.7 mg/dL (74-106); POTASSIUM 4.53 mmol/L (3.5-5.1); SODIUM 137.6 mmol/L (134.5-145)
[2024-06-29 05:25] LABS: BASOPHILS % (AUTO) 0.3 % (0.0-3.0); EOSINOPHILS # (AUTO) 0.2 K/ul (0.0-0.7); EOSINOPHILS % (AUTO) 2.9 % (0.0-7.0); HEMOGLOBIN 10.2 g/dl (12.0-16.0); IMMATURE GRANULOCYTE % (AUTO) 0.6 % (0.0-5.0); LYMPHOCYTES # (AUTO) 1.7 K/uL (0.60-3.4); LYMPHOCYTES % (AUTO) 23.4 (10.0-50.0); MEAN CORPUSCULAR HGB CONC 30.9 (31.8-35.4); MEAN CORPUSCULAR VOLUME 100.3 fl (81.0-99.0); MONOCYTES # (AUTO) 0.4 K/uL (0.4-2.0); MONOCYTES % (AUTO) 5.1 (0-10); NEUTROPHILS # (AUTO) 4.9 K/ul (2.0-6.9); NEUTROPHILS % (AUTO) 67.7 % (42.2-75.2); PLATELET COUNT 97 10^3/uL (140-440); RDW COEFFICIENT OF VARIATION 15.2 % (11.6-14.8); RED BLOOD COUNT 3.29 10^6/ul (4.20-5.40); WHITE BLOOD COUNT 7.25 K/ul (4.6-10.2)
[2024-06-29 05:39] LABS: ALBUMIN 3.66 g/dL (3.5-5.0); ALKALINE PHOSPHATASE 104.8 U/L (53-141); ASPARTATE AMINO TRANSFERASE 21.1 U/L (14-36); BILIRUBIN,TOTAL 0.27 mg/dL (0.2-1.3); BLOOD UREA NITROGEN 57.2 mg/dL (7-17); CALCIUM 8.96 mg/dL (8.4-10.2); CARBON DIOXIDE 19.2 mmol/L (22-30.0); CHLORIDE 110.8 mmol/L (98-107); CREATININE 2.96 mg/dL (0.60-1.30); GLUCOSE 89.7 mg/dL (74-106); POTASSIUM 4.17 mmol/L (3.5-5.1); SODIUM 138.4 mmol/L (134.5-145); TOTAL PROTEIN 5.99 g/dL (6.3-8.2)
[2024-06-29] MEDS: VEKLURY 100 MG in SODIUM CHLORIDE 100ML 100 ML IV SCH (08:39)
[2024-06-29] MEDS ORDERED: HYDRALAZINE HCL IVP PRN (08:43)
[2024-06-29] MEDS: LACTATED RINGERS 1,000 ML IV SCH (09:34)
--- NOTE | 2024-06-29 09:44 | PCM.PROG ---
Date/Time Seen Date Seen by Provider: 06/29/24 Time Seen by Provider: 08:40 Provider [facility] Chief Complaint Chief Complaint: SPEEDY, COVID + Subjective Subjective: Patient has no complaints. Slightly more confused today. Knows she's at [employer] but unsure why she is here. On RA. Objective Appearance: Positive No Apparent Distress and Alert and Oriented x3 (but confused with details ) Chest/Lungs: Positive Clear to Auscultation Bilaterally; Negative Rales, Rhonci or Wheezes Heart: Positive RRR GI/: Positive Soft, Nontender, Bowel Sounds Normal and No Distention Neurological: Positive Cranial Nerves Intact, Alert, Oriented (to place and person. ) and Muscle Strength 5/5 in Upper and Lower Extremities Bilaterally Vital Signs Vital Signs: Vital Signs: Last 24 Hours 06/28/24 10:00 06/28/24 10:00 06/28/24 11:00 Temperature 97.8 F Temperature Source Oral Pulse Rate 80 Respiratory Rate 16 Blood Pressure 134/62 Blood Pressure Mean 86 Blood Pressure Location Left Arm Blood Pressure Position Supine O2 Sat by Pulse Oximetry 97 Oxygen Delivery Method Room Air Room Air Room Air Weight Telemetry Type Telemetry Monitoring Telemetry Heart Rate Telemetry SPO2 EKG NJ Interval EKG QRS Interval Telemetry Strip Reading 06/28/24 12:00 06/28/24 12:48 06/28/24 13:00 Temperature Temperature Source Pulse Rate Respiratory Rate Blood Pressure Blood Pressure Mean Blood Pressure Location Blood Pressure Position O2 Sat by Pulse Oximetry Oxygen Delivery Method Room Air Room Air Weight Telemetry Type Remote Telemetry Telemetry Monitoring Continues Telemetry Heart Rate 87 Telemetry SPO2 EKG NJ Interval 0.18 EKG QRS Interval 0.08 Telemetry Strip Reading SR 06/28/24 13:00 06/28/24 14:00 06/28/24 14:00 Temperature 98.2 F Temperature Source Oral Pulse Rate 69 Respiratory Rate 16 Blood Pressure 150/74 H Blood Pressure Mean 99 Blood Pressure Location Right Arm Blood Pressure Position Supine O2 Sat by Pulse Oximetry 97 Oxygen Delivery Method Room Air Room Air Weight Telemetry Type Remote Telemetry Telemetry Monitoring Continues Telemetry Heart Rate 76 Telemetry SPO2 EKG NJ Interval 0.22 H EKG QRS Interval 0.08 Telemetry Strip Reading SR with 1st degree AVB 06/28/24 15:00 06/28/24 16:00 06/28/24 17:00 Temperature Temperature Source Pulse Rate Respiratory Rate Blood Pressure Blood Pressure Mean Blood Pressure Location Blood Pressure Position O2 Sat by Pulse Oximetry Oxygen Delivery Method Room Air Room Air Room Air Weight Telemetry Type Telemetry Monitoring Telemetry Heart Rate Telemetry SPO2 EKG NJ Interval EKG QRS Interval Telemetry Strip Reading 06/28/24 18:00 06/28/24 18:00 06/28/24 19:00 Temperature 98 F Temperature Source Temporal Artery Scan Pulse Rate 71 Respiratory Rate 15 Blood Pressure 126/58 L Blood Pressure Mean 80 Blood Pressure Location Left Arm Blood Pressure Position Sitting O2 Sat by Pulse Oximetry 98 Oxygen Delivery Method Room Air Room Air Weight Telemetry Type Remote Telemetry Telemetry Monitoring Continues Telemetry Heart Rate 71 Telemetry SPO2 EKG NJ Interval 0.21 H EKG QRS Interval 0.08 Telemetry Strip Reading SR with 1st degree AVB 06/28/24 19:00 06/28/24 20:00 06/28/24 20:00 Temperature Temperature Source Pulse Rate Respiratory Rate 18 Blood Pressure Blood Pressure Mean Blood Pressure Location Blood Pressure Position O2 Sat by Pulse Oximetry Oxygen Delivery Method Room Air Room Air Room Air Weight Telemetry Type Telemetry Monitoring Telemetry Heart Rate Telemetry SPO2 EKG NJ Interval EKG QRS Interval Telemetry Strip Reading 06/28/24 21:00 06/28/24 21:12 06/28/24 22:00 Temperature 97.6 F Temperature Source Oral Pulse Rate 72 Respiratory Rate 18 Blood Pressure 132/66 Blood Pressure Mean 88 Blood Pressure Location Left Arm Blood Pressure Position Supine O2 Sat by Pulse Oximetry 98 Oxygen Delivery Method Room Air Room Air Room Air Weight Telemetry Type Telemetry Monitoring Telemetry Heart Rate Telemetry SPO2 EKG NJ Interval EKG QRS Interval Telemetry Strip [place] 06/28/24 23:00 06/28/24 23:47 06/29/24 01:00 Temperature Temperature Source Pulse Rate Respiratory Rate Blood Pressure Blood Pressure Mean Blood Pressure Location Blood Pressure Position O2 Sat by Pulse Oximetry Oxygen Delivery Method Room Air Room Air Room Air Weight Telemetry Type Telemetry Monitoring Telemetry Heart Rate Telemetry SPO2 EKG NJ Interval EKG QRS Interval Telemetry Strip Reading 06/29/24 01:00 06/29/24 02:00 06/29/24 02:00 Temperature Temperature Source Pulse Rate 96 Respiratory Rate Blood Pressure 170/88 H Blood Pressure Mean 115 Blood Pressure Location Left Arm Blood Pressure Position Supine O2 Sat by Pulse Oximetry 95 Oxygen Delivery Method Room Air Room Air Weight Telemetry Type Remote Telemetry Telemetry Monitoring Continues Telemetry Heart Rate 68 Telemetry SPO2 97 EKG NJ Interval 0.18 EKG QRS Interval 0.07 Telemetry Strip Reading SR 06/29/24 02:57 06/29/24 04:00 06/29/24 05:00 Temperature Temperature Source Pulse Rate Respiratory Rate Blood Pressure Blood Pressure Mean Blood Pressure Location Blood Pressure Position O2 Sat by Pulse Oximetry Oxygen Delivery Method Room Air Room Air Room Air Weight Telemetry Type Telemetry Monitoring Telemetry Heart Rate Telemetry SPO2 EKG NJ Interval EKG QRS Interval Telemetry Strip [place] 06/29/24 05:35 06/29/24 05:35 06/29/24 05:59 Temperature 97.6 F Temperature Source Oral Pulse Rate 68 Respiratory Rate 18 Blood Pressure 142/85 H Blood Pressure Mean 104 Blood Pressure Location Left Arm Blood Pressure Position Supine O2 Sat by Pulse Oximetry 97 Oxygen Delivery Method Room Air Room Air Weight 191 lb 7 oz Telemetry Type Telemetry Monitoring Telemetry Heart Rate Telemetry SPO2 EKG NJ Interval EKG QRS Interval Telemetry Strip Reading 06/29/24 07:00 06/29/24 07:00 06/29/24 08:00 Temperature Temperature Source Pulse Rate Respiratory Rate 17 Blood Pressure Blood Pressure Mean Blood Pressure Location Blood Pressure Position O2 Sat by Pulse Oximetry Oxygen Delivery Method Room Air Room Air Weight Telemetry Type Remote Telemetry Telemetry Monitoring Continues Telemetry Heart Rate 65 Telemetry SPO2 EKG NJ Interval 0.18 EKG QRS Interval 0.08 Telemetry Strip Reading sa 06/29/24 08:00 Temperature Temperature Source Pulse Rate Respiratory Rate Blood Pressure Blood Pressure Mean Blood Pressure Location Blood Pressure Position O2 Sat by Pulse Oximetry Oxygen Delivery Method Room Air Weight Telemetry Type Telemetry Monitoring Telemetry Heart Rate Telemetry SPO2 EKG NJ Interval EKG QRS Interval Telemetry Strip Reading Lab Results Lab Results: Lab Results: Last 24 Hours 06/29/24 06/28/24 06/28/24 05:06 14:10 10:27 WBC 7.25 RBC 3.29 L Hgb 10.2 L Hct 33.0 L MCV 100.3 H MCH 31.0 MCHC 30.9 L RDW Coeff of Jono 15.2 H Plt Count 97 L Immature Gran % (Auto) 0.6 Neut % (Auto) 67.7 Lymph % (Auto) 23.4 [place] % (Auto) 5.1 Eos % (Auto) 2.9 Baso % (Auto) 0.3 Neut # (Auto) 4.9 Lymph # (Auto) 1.7 [place] # (Auto) 0.4 Eos # (Auto) 0.2 Baso # (Auto) 0.0 Immature Gran # (Auto) 0.0 PT 10.0 9.9 INR 0.96 0.95 Sodium 138.4 137.6 Potassium 4.17 4.53 Chloride 110.8 H 107.3 H Carbon Dioxide 19.2 L 19.2 L Anion Gap 12.57 15.63 BUN 57.2 H 51.5 H Creatinine 2.96 H 2.70 H Estimated GFR (MDRD) 15.00 17.00 BUN/Creatinine Ratio 19.32 19.07 Glucose 89.7 122.7 H Calcium 8.96 9.54 Total Bilirubin 0.27 AST 21.1 ALT 14.0 Alkaline Phosphatase 104.8 Total Protein 5.99 L Albumin 3.66 Globulin 2.33 Albumin/Globulin Ratio 1.57 Additional Comments Additional Comments: I have independently reviewed and interpreted the labs/EKGs/imaging ordered during this hospital stay. I have reviewed outside records that are available in our EMR that pertain to medical stay including imaging/notes/labs from previous visits. Active Medications Active Medications: Medications Generic Name Dose Route Start Last Admin Trade Name Freq PRN Reason Stop Dose Admin Acetaminophen 650 mg 06/27/24 19:51 Acetaminophen 325 Mg Tablet PO Q4H PRN Mild Pain Albuterol Sulfate 2.5 mg 06/27/24 19:59 Albuterol Sulfate 0.083% Vial.[facility] RTQ4H PRN Wheezing Albuterol/Ipratropium 3 ml 06/28/24 14:11 Ipratropium/Albuterol Vial.[facility] NEB RTQ4H PRN wheezing Allopurinol 100 mg 06/28/24 09:00 06/28/24 11:37 Allopurinol 100 Mg Tablet PO 100 mg EVERY OTHER DAY TJ Administration Budesonide/Formoterol Fumarate 2 puff 06/28/24 09:00 06/29/24 08:39 Budesonide/Formoterol Fumarate 80/4.5 Mcg Hfa.Aer.Ad IH 2 puff BID TJ Administration Escitalopram Oxalate 20 mg 06/28/24 09:00 06/29/24 08:38 Escitalopram Oxalate 10 Mg Tablet PO 20 mg DAILY TJ Administration Hydralazine HCl 10 mg 06/29/24 08:43 Hydralazine Hcl 20 Mg/Ml Sdv IVP Q6H PRN Hypertension Remdesivir 100 mg/ Sodium 100 mls @ 200 mls/hr 06/29/24 09:00 06/29/24 08:39 Chloride IV 07/02/24 09:29 200 mls/hr DAILY TJ Administration Lactated Ringer's 1,000 mls @ 100 mls/hr 06/29/24 09:00 06/29/24 09:34 Lactated Ringers IV 100 mls/hr .Q10H TJ Administration Sodium Bicarbonate 650 mg 06/28/24 09:00 06/29/24 08:39 Sodium Bicarbonate 650 Mg Tablet PO 650 mg BID TJ Administration Sodium Chloride 1 syr 06/28/24 05:00 06/29/24 05:56 0.9% Sodium Chloride 10 Ml Disp.Syrin IVF 1 syr Q8HR TJ Administration Plan Plan: 1. Acute HFpEF exacerbation - Resolved. Stopped lasix yesterday. On RA. Echo on 01/30/24 showed EF 56-60%, normal diastolic function. 2. Covid 19 - Will do remdesivir based on pmhx, pt agreeable. Will hold decadron as she is not hypoxic nor wheezing at this time. CXR clear. Covid precautions. Day #2. 3. SPEEDY, stage I with low bicarb on CKD- Bicarb improved but Cr worsened. Has hx of nephrectomy due to renal ca. Baseline Cr about 2.3. Will gently hydrate today. 4. Hypertension - Hold losartan due to SPEEDY. Hydralazine prn ordered. 5. Depression- Cont home meds 6. Gout - Cont allopurinol 7. Thrombocytopenia - Appears chronic, will monitor DVT: Holding lovenox in light of thrombocytopenia. Review Statement Review Statement: I have personally discussed and reviewed the patient's visit/currently labs/imaging/decision making with Dr. Love, my supervising attending. Greater that 50 minutes spent with patient, 50% of the time spent with this patient was devoted to counseling and coordination of care.
[2024-06-29] MEDS: ZOFRAN 4 MG/2 ML IVP PRN (20:20)
[2024-06-30 05:58] LABS: PROTHROMBIN TIME 10.2 SEC (9.3-11.0)
[2024-06-30 06:05] LABS: ALANINE AMINOTRANSFERASE 14.1 U/L (0-35); ALBUMIN 3.92 g/dL (3.5-5.0); ASPARTATE AMINO TRANSFERASE 24.8 U/L (14-36); BILIRUBIN,TOTAL 0.39 mg/dL (0.2-1.3); BLOOD UREA NITROGEN 51.4 mg/dL (7-17); CALCIUM 9.18 mg/dL (8.4-10.2); CARBON DIOXIDE 20.1 mmol/L (22-30.0); CHLORIDE 112.6 mmol/L (98-107); CREATININE 2.52 mg/dL (0.60-1.30); GLUCOSE 91.2 mg/dL (74-106); POTASSIUM 4.7 mmol/L (3.5-5.1); SODIUM 140.2 mmol/L (134.5-145); TOTAL PROTEIN 6.25 g/dL (6.3-8.2)
[2024-06-30 06:34] LABS: BASOPHILS # (AUTO) 0.1 K/uL (0-0.2); BASOPHILS % (AUTO) 0.7 % (0.0-3.0); EOSINOPHILS # (AUTO) 0.3 K/ul (0.0-0.7); EOSINOPHILS % (AUTO) 4.6 % (0.0-7.0); HEMATOCRIT 35.3 % (37.0-47.0); HEMOGLOBIN 10.8 g/dl (12.0-16.0); IMMATURE GRANULOCYTE % (AUTO) 0.3 % (0.0-5.0); LYMPHOCYTES # (AUTO) 1.2 K/uL (0.60-3.4); LYMPHOCYTES % (AUTO) 17.9 (10.0-50.0); MEAN CORPUSCULAR HEMOGLOBIN 31.5 pg (27.0-31.0); MEAN CORPUSCULAR HGB CONC 30.6 (31.8-35.4); MEAN CORPUSCULAR VOLUME 102.9 fl (81.0-99.0); MONOCYTES # (AUTO) 0.4 K/uL (0.4-2.0); MONOCYTES % (AUTO) 5.8 (0-10); NEUTROPHILS # (AUTO) 4.9 K/ul (2.0-6.9); NEUTROPHILS % (AUTO) 70.7 % (42.2-75.2); PLATELET COUNT 112 10^3/uL (140-440); RED BLOOD COUNT 3.43 10^6/ul (4.20-5.40); WHITE BLOOD COUNT 6.89 K/ul (4.6-10.2)
[2024-06-30] MEDS: PEPCID IVP SCH (10:55)
[2024-06-30] MEDS: PROTONIX IVP SCH (10:55)
[2024-06-30] MEDS: COZAAR PO ONE (10:56)
--- NOTE | 2024-06-30 11:07 | PCM.PROG ---
Date/Time Seen Date Seen by Provider: 06/30/24 Time Seen by Provider: 09:20 Provider Provider: [facility]ESSEE CASPER [facility] Chief Complaint Chief Complaint: SPEEDY, COVID + Subjective Subjective: Patient not feeling well today, was planning on discharge however patient had an episode of vomiting last night and again this morning. Describes epigastric discomfort. Otherwise doing well, no SOB, on RA. Objective Appearance: Positive No Apparent Distress and Alert and Oriented x3 (but confused with details ) Chest/Lungs: Positive Clear to Auscultation Bilaterally; Negative Rales, Rhonci or Wheezes Heart: Positive RRR GI/: Positive Soft, Bowel Sounds Normal, No Distention and Tender (+epigastric ) Neurological: Positive Cranial Nerves Intact, Alert, Oriented (to place and person. ) and Muscle Strength 5/5 in Upper and Lower Extremities Bilaterally Vital Signs Vital Signs: Vital Signs: Last 24 Hours 06/29/24 13:00 06/29/24 14:00 06/29/24 18:00 Temperature 97.9 F 97.8 F Temperature Source Temporal Artery Scan Temporal Artery Scan Pulse Rate 65 72 Respiratory Rate 17 15 Blood Pressure 155/83 H 159/74 H Blood Pressure Mean 107 102 Blood Pressure Location Left Arm Left Arm Blood Pressure Position Sitting Sitting O2 Sat by Pulse Oximetry 97 97 Oxygen Delivery Method Room Air Room Air Telemetry Type Bedside Monitor Telemetry Monitoring Continues Telemetry Heart Rate 65 Telemetry SPO2 EKG MS Interval 0.16 EKG QRS Interval 0.06 Telemetry Strip Reading sr 06/29/24 19:00 06/29/24 20:00 06/29/24 22:00 Temperature 97.8 F Temperature Source Temporal Artery Scan Pulse Rate 68 Respiratory Rate 18 Blood Pressure 160/75 H Blood Pressure Mean 103 Blood Pressure Location Left Arm Blood Pressure Position Supine O2 Sat by Pulse Oximetry 95 Oxygen Delivery Method Room Air Room Air Telemetry Type Remote Telemetry Telemetry Monitoring Continues Telemetry Heart Rate 67 Telemetry SPO2 98 EKG MS Interval 0.15 EKG QRS Interval 0.05 L Telemetry Strip Reading SR 06/30/24 01:00 06/30/24 01:56 06/30/24 05:29 Temperature 98.2 F Temperature Source Temporal Artery Scan Pulse Rate 68 80 Respiratory Rate 18 20 Blood Pressure 149/74 H 168/64 H Blood Pressure Mean 99 98 Blood Pressure Location Left Arm Left Arm Blood Pressure Position Supine Supine O2 Sat by Pulse Oximetry 96 97 Oxygen Delivery Method Room Air Room Air Telemetry Type Remote Telemetry Telemetry Monitoring Continues Telemetry Heart Rate 68 Telemetry SPO2 95 EKG MS Interval 0.19 EKG QRS Interval 0.06 Telemetry Strip Reading SR 06/30/24 07:00 06/30/24 08:00 06/30/24 09:23 Temperature Temperature Source Pulse Rate 71 Respiratory Rate 16 Blood Pressure 179/82 H Blood Pressure Mean 114 Blood Pressure Location Left Arm Blood Pressure Position Sitting O2 Sat by Pulse Oximetry 98 Oxygen Delivery Method Room Air Room Air Telemetry Type Remote Telemetry Telemetry Monitoring Continues Telemetry Heart Rate 61 Telemetry SPO2 98 EKG MS Interval 0.19 EKG QRS Interval 0.06 Telemetry Strip Reading SR 06/30/24 10:00 06/30/24 10:00 Temperature 98.6 F Temperature Source Temporal Artery Scan Pulse Rate 60 67 Respiratory Rate 16 Blood Pressure 151/71 H 151/71 H Blood Pressure Mean 97 97 Blood Pressure Location Left Arm Left Arm Blood Pressure Position Sitting O2 Sat by Pulse Oximetry 95 94 L Oxygen Delivery Method Room Air Room Air Telemetry Type Telemetry Monitoring Telemetry Heart Rate Telemetry SPO2 EKG MS Interval EKG QRS Interval Telemetry Strip Reading Lab Results Lab Results: Lab Results: Last 24 Hours 06/30/24 05:39 WBC 6.89 RBC 3.43 L Hgb 10.8 L Hct 35.3 L MCV 102.9 H MCH 31.5 H MCHC 30.6 L RDW Coeff of Jono 15.0 H Plt Count 112 L Immature Gran % (Auto) 0.3 Neut % (Auto) 70.7 Lymph % (Auto) 17.9 [place] % (Auto) 5.8 Eos % (Auto) 4.6 Baso % (Auto) 0.7 Neut # (Auto) 4.9 Lymph # (Auto) 1.2 [place] # (Auto) 0.4 Eos # (Auto) 0.3 Baso # (Auto) 0.1 Immature Gran # (Auto) 0.0 PT 10.2 INR 0.98 Sodium 140.2 Potassium 4.70 Chloride 112.6 H Carbon Dioxide 20.1 L Anion Gap 12.20 BUN 51.4 H Creatinine 2.52 H Estimated GFR (MDRD) 18.00 BUN/Creatinine Ratio 20.39 Glucose 91.2 Calcium 9.18 Total Bilirubin 0.39 AST 24.8 ALT 14.1 Alkaline Phosphatase 110.0 Total Protein 6.25 L Albumin 3.92 Globulin 2.33 Albumin/Globulin Ratio 1.68 Additional Comments Additional Comments: I have independently reviewed and interpreted the labs/EKGs/imaging ordered during this hospital stay. I have reviewed outside records that are available in our EMR that pertain to medical stay including imaging/notes/labs from previous visits. Active Medications Active Medications: Medications Generic Name Dose Route Start Last Admin Trade Name Freq PRN Reason Stop Dose Admin Acetaminophen 650 mg 06/27/24 19:51 Acetaminophen 325 Mg Tablet PO Q4H PRN Mild Pain Albuterol Sulfate 2.5 mg 06/27/24 19:59 Albuterol Sulfate 0.083% Vial.[facility] NEB RTQ4H PRN Wheezing Albuterol/Ipratropium 3 ml 06/28/24 14:11 Ipratropium/Albuterol Vial.Neb NEB RTQ4H PRN wheezing Allopurinol 100 mg 06/28/24 09:00 06/30/24 08:58 Allopurinol 100 Mg Tablet PO 100 mg EVERY OTHER DAY TJ Administration Budesonide/Formoterol Fumarate 2 puff 06/28/24 09:00 06/30/24 08:58 Budesonide/Formoterol Fumarate 80/4.5 Mcg Hfa.Aer.Ad IH 2 puff BID TJ Administration Escitalopram Oxalate 20 mg 06/28/24 09:00 06/30/24 08:58 Escitalopram Oxalate 10 Mg Tablet PO 20 mg DAILY TJ Administration Famotidine 20 mg 06/30/24 10:30 06/30/24 10:55 Famotidine Inj 20 Mg/2 Ml Vial IVP 20 mg Q12HR TJ Administration Hydralazine HCl 10 mg 06/29/24 08:43 Hydralazine Hcl 20 Mg/Ml Sdv IVP Q6H PRN Hypertension Remdesivir 100 mg/ Sodium 100 mls @ 200 mls/hr 06/29/24 09:00 06/30/24 08:58 Chloride IV 07/02/24 09:29 200 mls/hr DAILY TJ Administration Lactated Ringer's 1,000 mls @ 100 mls/hr 06/29/24 09:00 06/30/24 02:12 Lactated Ringers IV 100 mls/hr .Q10H TJ Administration Ondansetron HCl 4 mg 06/29/24 20:00 06/30/24 09:05 Ondansetron Hcl/Pf 4 Mg/2 Ml Sdv IVP 4 mg Q6H PRN Administration vomiting Pantoprazole Sodium 40 mg 06/30/24 10:30 06/30/24 10:55 Pantoprazole Sodium 40 Mg Vial IVP 40 mg DAILY TJ Administration Sodium Bicarbonate 650 mg 06/28/24 09:00 06/30/24 08:58 Sodium Bicarbonate 650 Mg Tablet PO 650 mg BID TJ Administration Sodium Chloride 1 syr 06/28/24 05:00 06/30/24 05:45 0.9% Sodium Chloride 10 Ml Disp.Syrin IVF 1 syr Q8HR TJ Administration Plan Plan: 1. Acute HFpEF exacerbation - Resolved. Stopped lasix IV. On RA. Echo on 01/30/24 showed EF 56-60%, normal diastolic function. 2. Covid 19 - Will do remdesivir based on pmhx, pt agreeable. Will hold decadron as she is not hypoxic nor wheezing at this time. CXR clear. Covid precautions. Day #3. 3. SPEEDY, stage I with low bicarb on CKD- Resolved. Has hx of nephrectomy due to renal ca. Baseline Cr about 2.3. Stop fluids today. 4. Hypertension - Restart losartan 5. Depression- Cont home meds 6. Gout - Cont allopurinol 7. Thrombocytopenia - Appears chronic, will monitor 8. Vomiting - Sounds gastritis related, protonix and pepcid ordered. Will monitor through the day. DVT: Holding lovenox in light of thrombocytopenia. Dispo: Discharge delayed, possible dc tomorrow. Review Statement Review Statement: I have personally discussed and reviewed the patient's visit/currently labs/imaging/decision making with Dr. Love, my supervising attending. Greater that 50 minutes spent with patient, 50% of the time spent with this patient was devoted to counseling and coordination of care.
[2024-07-01 05:57] LABS: BASOPHILS % (AUTO) 0.4 % (0.0-3.0); EOSINOPHILS # (AUTO) 0.3 K/ul (0.0-0.7); EOSINOPHILS % (AUTO) 6.1 % (0.0-7.0); HEMATOCRIT 32.7 % (37.0-47.0); HEMOGLOBIN 10.1 g/dl (12.0-16.0); IMMATURE GRANULOCYTE % (AUTO) 0.5 % (0.0-5.0); LYMPHOCYTES # (AUTO) 1.2 K/uL (0.60-3.4); LYMPHOCYTES % (AUTO) 21.6 (10.0-50.0); MEAN CORPUSCULAR HEMOGLOBIN 31.5 pg (27.0-31.0); MEAN CORPUSCULAR HGB CONC 30.9 (31.8-35.4); MEAN CORPUSCULAR VOLUME 101.9 fl (81.0-99.0); MONOCYTES # (AUTO) 0.5 K/uL (0.4-2.0); MONOCYTES % (AUTO) 8.8 (0-10); NEUTROPHILS # (AUTO) 3.5 K/ul (2.0-6.9); NEUTROPHILS % (AUTO) 62.6 % (42.2-75.2); PLATELET COUNT 94 10^3/uL (140-440); RDW COEFFICIENT OF VARIATION 15.2 % (11.6-14.8); RED BLOOD COUNT 3.21 10^6/ul (4.20-5.40)
[2024-07-01 06:12] LABS: ALANINE AMINOTRANSFERASE 11.9 U/L (0-35); ALBUMIN 3.35 g/dL (3.5-5.0); ALKALINE PHOSPHATASE 96.3 U/L (53-141); ASPARTATE AMINO TRANSFERASE 17.2 U/L (14-36); BILIRUBIN,TOTAL 0.33 mg/dL (0.2-1.3); BLOOD UREA NITROGEN 46.7 mg/dL (7-17); CALCIUM 8.91 mg/dL (8.4-10.2); CARBON DIOXIDE 21.7 mmol/L (22-30.0); CHLORIDE 112.3 mmol/L (98-107); CREATININE 2.58 mg/dL (0.60-1.30); GLUCOSE 88.7 mg/dL (74-106); POTASSIUM 4.41 mmol/L (3.5-5.1); SODIUM 139.5 mmol/L (134.5-145); TOTAL PROTEIN 5.56 g/dL (6.3-8.2)
[2024-07-01] MEDS: COZAAR PO SCH (08:48)
--- NOTE | 2024-07-01 09:14 | DCSUM ---
Admission Date Admission Date: 06/27/24 Discharge Date Discharge Date: 07/01/24 Admission Diagnosis Admission Diagnosis: 1. Acute HFpEF exacerbation 2. Covid 19 3. SPEEDY, stage I Discharge Diagnosis Discharge Diagnosis: 1. Acute HFpEF exacerbation - Resolved. 2. Covid 19 3. SPEEDY, stage I with low bicarb on CKD - resolved 4. Hypertension 5. Depression 6. Gout 7. Thrombocytopenia, chronic 8. Vomiting - resolved Hospital Provider Hospital Provider: JESSEE CASPER PA-C, [facility] Primary Care Physician Primary Care Physician: MANN DRAPER Summary of History and Physical Summary of History and Physical: Patient is an 83 year old female with pmhx of right kidney cancer s/p nephrectomy, left lower lobe lung lobectomy (potentially due to cancerous area), COPD, depression, gout, CHF, hypertension, CKD who presents to ER with worsening shortness of breath over last day or two. She states she has a cough but often has a cough. She feels weak overall. CXR negative. Covid was positive. Pt felt to be fluid overloaded and given lasix. BNP elevated at 1800. Cr elevated as well, unsure of baseline. Patient admitted to med surg. Records obtained from [facility] showing on CR was 2.3, BUN 47, bicarb 22, BNP 1137. Echo within past year was overall normal with some mild aortic stenosis. EF normal. Hospital Course Subjective: Patient was treated with remdesivir due to her pmhx. Decadron not continued as she was not hypoxic. Pt has remained on RA throughout stay. Pt initially diuresed with lasix in ER due to elevated BNP and SOB, but BNP is not far from baseline based on [facility]. Clinically pt was not overloaded. Renal function had worsened. She was gently hydrated for about 24 hours and renal function returned to her baseline. Discharge delayed on 06/30 as patient vomited and didn't feel well. She was given zofran, pepcid, and protonix. It seemed to be an isolated event and had no more vomiting. She feels well today. Has been ambulating back and forth to bs without difficulty. Will discharge home with zofran prn. Has completed 4 doses of remdesivir while here. Appearance: Pleasant, No Apparent Distress and Alert HEENT: MMM CVS: No Murmur Abdomen: Soft, Non-Tender and No Distention Respiratory: No Accessory Muscle Use Extremities: Other (+trace generalized nonpitting edema ) Vital Signs: Most Recent Vital Signs Temperature 98.3 F 07/01/24 05:25 Temperature Source Temporal Artery Scan 07/01/24 05:25 Temperature Source Temporal Artery Scan 06/27/24 17:50 Pulse Rate 55 L 07/01/24 05:25 Respiratory Rate 20 07/01/24 05:25 Blood Pressure 157/75 H 07/01/24 05:25 Blood Pressure Mean 102 07/01/24 05:25 Blood Pressure Left Arm 183/84 06/27/24 20:42 Blood Pressure Location Left Arm 07/01/24 05:25 Blood Pressure Position Sitting 07/01/24 05:25 O2 Sat by Pulse Oximetry 97 07/01/24 05:25 Oxygen Delivery Method Room Air 07/01/24 05:25 Height 5 ft 7 in 06/27/24 20:42 Weight 186 lb 2 oz 07/01/24 05:25 Telemetry Type Remote Telemetry 07/01/24 07:00 Telemetry Monitoring Continues 07/01/24 07:00 Telemetry Heart Rate 57 L 07/01/24 07:00 Telemetry SPO2 97 07/01/24 07:00 EKG NM Interval 0.17 07/01/24 07:00 EKG QRS Interval 0.05 L 07/01/24 07:00 Telemetry Strip Reading SB/SR 07/01/24 07:00 Imaging: EXAM: SINGLE VIEW CHEST XRAY. Date: 06/27/2024 Comparison: 11/28/2023 History: Shortness of breath with history of left lung cancer and partial left lobectomy. Findings: No acute osseous abnormality. There is stable scarring along the left lateral chest wall. The lungs are hyperinflated. The cardiac silhouette is enlarged. The pulmonary vasculatures normal. Impression: No acute findings and no significant change from 08/28/2024. Emphysematous changes with stable scarring along the left lateral chest wall. Cardiomegaly. Lab Results Last 24 Hours: 07/01/24 05:00 WBC 5.60 RBC 3.21 L Hgb 10.1 L Hct 32.7 L MCV 101.9 H MCH 31.5 H MCHC 30.9 L RDW Coeff of Jono 15.2 H Plt Count 94 L Immature Gran % (Auto) 0.5 Neut % (Auto) 62.6 Lymph % (Auto) 21.6 [place] % (Auto) 8.8 Eos % (Auto) 6.1 Baso % (Auto) 0.4 Neut # (Auto) 3.5 Lymph # (Auto) 1.2 [place] # (Auto) 0.5 Eos # (Auto) 0.3 Baso # (Auto) 0.0 Immature Gran # (Auto) 0.0 Sodium 139.5 Potassium 4.41 Chloride 112.3 H Carbon Dioxide 21.7 L Anion Gap 9.91 BUN 46.7 H Creatinine 2.58 H Estimated GFR (MDRD) 18.00 BUN/Creatinine Ratio 18.10 Glucose 88.7 Calcium 8.91 Total Bilirubin 0.33 AST 17.2 ALT 11.9 Alkaline Phosphatase 96.3 Total Protein 5.56 L Albumin 3.35 L Globulin 2.21 Albumin/Globulin Ratio 1.51 Discharge Instructions Discharge Planning: Discharge Planning > [address] Tamir Love. Discharge Medications: Medications at Discharge (Home Meds & RX) Discharge Plan Discharge Discharge Orders: Discharge Patient (ONCE); Ordered 07/01/24 Ordered By: JESSEE CASPER Activity Restrictions/Additional Instructions: DISCHARGE TO HOME DX: COVID DIET: HEART HEALTHY ACTIVITY: TOLERATED COVID PRECAUTIONS PHARMACY: [facility] NEEDED FOR NAUSEA Instructions: COVID-19 (Coronavirus Disease 2019) (GEN) Care Plan Goals: Problem: Activity Intolerance Goal: Demonstrate increased activity intolerance Instructions: Determine cause of activity intolerance Change positions slowly Gradually increase activity Report intolerances to provider Patient Disposition: HOME WITH FAMILY CARE Prescriptions: New ondansetron HCl 4 mg tablet 4 mg PO Q6H PRN (Reason: nausea and vomiting) Qty: 10 0RF Continued escitalopram oxalate 20 mg tablet 20 mg PO DAILY sodium bicarbonate 650 mg tablet 650 mg PO BID albuterol sulfate [Proventil HFA] 90 mcg/actuation HFA aerosol inhaler 1 inh inhalation Q4-6H PRN (Reason: shortness of breath or wheezing) furosemide 40 mg tablet 40 mg PO DAILY fluticasone propion-salmeterol [Advair Diskus] 100-50 mcg/dose blister with device 1 inh inhalation BID losartan [Cozaar] 100 mg tablet 100 mg PO DAILY cholecalciferol (vitamin D3) [Vitamin D3] 25 mcg (1,000 unit) capsule 25 mcg PO DAILY mecobalamin (vitamin B12) 1,000 mcg tablet,disintegrating 1,000 mcg sublingual DAILY Rx Instructions: place tablet under tongue and allow to dissolve for at least30 secs before swallowing allopurinol 100 mg tablet 100 mg PO EVERY OTHER DAY Did you review [place] [employer] for ALL controlled substances?: Not Applicable Discussed opioids are addictive and Narcan is available by prescription or from pharmacy.: No Condition: Stable Referrals: MANN DRAPER, MARVIN,[employer]ILRO[employer] SIGNAL OPERATOR [Primary Care Provider] - 07/08/24 1:00 pm
[2024-07-01 09:46] VITALS: BP 152/63; PULSE 68; RESP 16; TEMP 97.6
== END 2024-07-01 13:29 | disposition home or self-care (01) | DRG 177 ==
LOC: ED 17:49 → SCU 17:49
PROVIDERS: ADMIT Hospitalist; ATTEND Physician Assistant